=== PATIENT | male | born 1980 | race Caucasian/White ===

== ENCOUNTER 2018-12-05 07:30 | Emergency (ER) | payer MEDICAID ==
[2018-12-05 08:12] VITALS: BP 151/80
[2018-12-05] MEDS ORDERED: Ketorolac 60 MG/2 ML SDV IVPUSH ONE (08:35)
[2018-12-05] MEDS ORDERED: Ketorolac 60 MG/2 ML SDV ONE (08:40)
[2018-12-05] MEDS ORDERED: Diatrizoate Meglumine/Diatrizoate Sodium 37% 30 ML Bottle PO SCH (08:45)
--- NOTE | 2018-12-05 09:17 | EDM.PDOC ---
ED HPI GENERAL MEDICAL PROBLEM - General Chief Complaint: Abdominal Pain Stated Complaint: ABD PAIN Time Seen by Provider: 12/05/18 08:23 Source of Information: Reports: Patient, EMS History Limitations: Reports: No Limitations - History of Present Illness INITIAL COMMENTS - FREE TEXT/NARRATIVE: Pt was brought in by EMS with c/o abdominal pain. Pt is alert and oriented in the emergency room. He claims he has had left lower quadrant pain since last night. Pain is crampy in nature, waxing and waning type.Rates pain at 8/10. He claims since midnight he has had 5 episodes of small semiformed stools. Feels urge to use bath room, has used toilet twice in the emergency room. No fever or chills. No nausea or vomiting. No abdominal distension. He does take Vicodin for his chronic back pain, which is not helping with his abdominal pain. Onset Date: 12/04/18 Duration: Getting Worse, Intermittent Location: Reports: Abdomen Quality: Reports: Ache Severity: Moderate Improves with: Reports: None Worsens with: Reports: None Associated Symptoms: Denies: Confusion, Chest Pain, Cough, Diaphoresis, Fever/ Chills, Headaches, Nausea/Vomiting, Rash, Seizure, Shortness of Breath, Syncope , Weakness Treatments [employer]: Reports: Other (see below) Other Treatments [employer]: percocet Abdominal Pain Score (Numeric/FACES): 10 - Related Data Allergies Allergy/AdvReac Type Severity Reaction Status Date / Time No Known Allergies Allergy Verified 12/26/15 23:26 Home Meds: Home Meds Acetaminophen/oxyCODONE [Percocet 325-5 MG] 1 tab PO Q8HR 12/05/18 [History] Sildenafil Citrate [Sildenafil] 50 mg PO DAILY PRN 12/05/18 [History] Past Medical History HEENT History: Reports: Impaired Vision Musculoskeletal History: Reports: Back Pain, Chronic Psychiatric History: Reports: Depression - Past Surgical History Musculoskeletal Surgical History: Reports: Other (See Below) Social & Family History - Family History Family Medical History: Noncontributory - Tobacco Use Smoking Status *Q: Current Every Day Smoker Years of Tobacco use: 20 Packs/Tins Daily: 1 Second Hand Smoke Exposure: Yes - Caffeine Use Caffeine Use: Reports: Coffee - Recreational Drug Use Recreational Drug Use: Yes Drug Use in Last 12 Months: Yes Recreational Drug Type: Reports: Marijuana/Hashish Recreational Drug Use Frequency: Monthly ED ROS GENERAL - Review of Systems Review Of Systems: See Below Constitutional: Denies: Fever, Chills, Weakness HEENT: Denies: Ear Pain, Rhinitis, Throat Pain Respiratory: Denies: Shortness of Breath, Pleuritic Chest Pain, Cough, Sputum Cardiovascular: Denies: Chest Pain, Lightheadedness Endocrine: Denies: Fatigue GI/Abdominal: Reports: Abdominal Pain, Diarrhea, Flatus. Denies: Black Stool, Constipation, Distension, Hematochezia, Melena, Nausea, Vomiting : Denies: Dysuria, Frequency Musculoskeletal: Denies: Joint Pain, Joint Swelling Skin: Denies: Bruising, Pruritis, Rash ED EXAM, GENERAL - Physical Exam Exam: See Below Exam Limited By: No Limitations General Appearance: Alert, WD/WN, Mild Distress Eye Exam: Bilateral Eye: EOMI, PERRL Ears: Normal External Exam, Normal Canal, Hearing Grossly Normal, Normal TMs Ear Exam: Bilateral Ear: Auricle Normal, Canal Normal, TM normal Nose: Normal Inspection, Normal Mucosa, No Blood Throat/Mouth: Normal Inspection, Normal Lips, Normal Teeth, Normal Gums, Normal Oropharynx, Normal Voice, No Airway Compromise Head: Atraumatic, Normocephalic Neck: Normal Inspection, Supple, Non-Tender, Full Range of Motion Respiratory/Chest: No Respiratory Distress, Lungs Clear, Normal Breath Sounds, No Accessory Muscle Use, Chest Non-Tender Cardiovascular: Normal Peripheral Pulses, Regular Rate, Rhythm, No Edema, No Gallop, No JVD, No Murmur, No Rub GI/Abdominal: Normal Bowel Sounds, Soft, No Organomegaly, No Distention, Tender (Pt is tender in theleftlower quadrant. No rebound tenderness.). No: Guarding, Rigid, Rebound Extremities: Normal Inspection, Normal Range of Motion, Non-Tender, Normal Capillary Refill, No Pedal Edema Neurological: Alert, Oriented, CN II-XII Intact, Normal Cognition, Normal Gait, Normal Reflexes, No Motor/Sensory Deficits Skin Exam: Warm, Intact Course - Vital Signs Text/Narrative:: Pt has been having frequent small stool, with left lower quadrant pain since midnight. No nausea or vomiting. His CBC shows white count of 14 K with 81% neutros. His CMP appears normal. He did receive toradol 60mg IM, which did bring his pain down to 2-3/10. Abdominal X-ray one view is negative for bowel obstruction and does show stool in the left side fo colon. Considering patient' s history did get CT abdomen and pelvis which is consistent with diverticulitis. Pt reassured that he has developed acute diverticulitis. As he is able to tolerate orally well, I have started him on cipro 500mg twice daily , Flagyl 500mg Twice daily for 1 wk. Also given script for toradol 10mg 3 times daily with food to help with pain. Soft diet, encourage plenty of fluids. Symptoms should gradually improve. Avoid constipation in future to prevent recurrent diverticulitis. Education given. Pt advised to followup with his primary care provider next week. Last Recorded V/S: Last Vital Signs Temp 97 F 12/05/18 08:10 Pulse 72 12/05/18 08:10 Resp 16 12/05/18 08:10 BP 151/80 H 12/05/18 08:10 Pulse Ox 100 12/05/18 08:10 - Orders/Labs/Meds Orders: Active Orders 24 hr Category Date Time Status Abdomen 1V Upright [CR] Stat Exams 12/05/18 08:08 Taken Abdomen Pelvis wo Cont [CT] Stat Exams 12/05/18 08:30 Taken Diatrizoate Billie/Diatrizoate Na [Gastrografin 37%] Med 12/05/18 08:45 Active 30 ml PO . DIRECTED Medication Orders Diatrizoate Meglum/Diatrizoate Sod (Gastrografin 37%) 30 ml PO . DIRECTED MIGNON Last Admin: 12/05/18 08:30 Dose: 30 ml Labs: Laboratory Tests 12/05/18 12/05/18 Range/Units 08:00 08:00 WBC 14.3 H D (4.0-11.0) K/uL RBC 4.32 L (4.50-6.50) M/uL Hgb 13.4 (13.0-18.0) g/dL Hct 39.8 L (40.0-54.0) % MCV 92 (76-96) fL MCH 31.0 (27.0-32.0) pg MCHC 33.7 (31.0-35.0) g/dL RDW 12.7 (11.0-16.0) % Plt Count 311 (150-400) K/uL MPV 9.0 (6.0-10.0) fL Neut % (Auto) 81.5 H (45.0-70.0) % Lymph % (Auto) 10.3 L (20.0-40.0) % [place] % (Auto) 6.7 (3.0-10.0) % Eos % (Auto) 1.1 (1.0-5.0) % Baso % (Auto) 0.4 (0.0-0.5) % Neut # (Auto) 11.63 H (2.00-7.50) K/uL Lymph # (Auto) 1.47 L (1.50-4.00) K/uL [place] # (Auto) 0.95 H (0.20-0.80) K/uL Eos # (Auto) 0.16 (0.04-0.40) K/uL Baso # (Auto) 0.05 (0.02-0.10) K/uL Sodium 145 (136-145) mmol/L Potassium 3.7 (3.5-5.1) mmol/L Chloride 108 H (98-107) mmol/L Carbon Dioxide 25.7 (21.0-32.0) mmol/L Anion Gap 15.0 (5.0-15.0) mmol/L BUN 19 (8-26) mg/dL Creatinine 1.03 (0.70-1.30) mg/dL Est Cr Clr Drug Dosing TNP Estimated GFR (MDRD) > 60 (>60) MLS/MIN BUN/Creatinine Ratio 18.4 (6-25) Glucose 141 H D (74-100) mg/dL Calcium 8.6 (8.5-10.1) mg/dL Total Bilirubin 0.2 (0.0-1.0) mg/dL AST 17 (15-37) U/L ALT 25 (12-78) U/L Alkaline Phosphatase 49 (46-116) U/L Total Protein 6.9 (6.4-8.2) g/dL Albumin 3.7 (3.4-5.0) g/dL Globulin 3.2 (2.2-4.2) g/dL Albumin/Globulin Ratio 1.2 (0.8-2.0) Meds: Medications Generic Name Dose Route Start Last Admin Trade Name Freq PRN Reason Stop Dose Admin Diatrizoate Meglum/Diatrizoate Sod 30 ml 12/05/18 08:45 12/05/18 08:30 Gastrografin 37% PO 30 ml . DIRECTED MIGNON Administration Discontinued Medications Generic Name Dose Route Start Last Admin Trade Name Fauzia PRN Reason Stop Dose Admin Ketorolac Tromethamine Confirm 12/05/18 08:40 12/05/18 08:46 Toradol Administered 12/05/18 08:41 Not Given Dose 60 mg .ROUTE .STK-MED ONE Ketorolac Tromethamine 60 mg 12/05/18 08:35 12/05/18 08:40 Toradol IVPUSH 12/05/18 08:36 60 mg ONETIME ONE Administration Departure - Departure Time of Disposition: 10:10 Disposition: Home, Self-Care 01 Condition: Fair Clinical Impression: Diverticulitis large intestine - Discharge Information Instructions: Abdominal Pain, Adult, Diverticulitis, Ketorolac tablets, Ciprofloxacin tablets, Metronidazole tablets or capsules Referrals: PCP,Unknown [Ordering Only Provider] - Forms: ED Department Discharge, ED Return to Work/School Form Care Plan Goals: Lots of fluids. Take cipro 500mg 2 x day for 7 days. Take Flagyl 500mg 2 x day for 7 days. Take Ketorlac 10mg 3 x day as needed. No more than 3 x day. Refrain from Hydrocodone due potential for constipation. Exclude berrries, corn unpealed apples, unpealed tomatoes from diet. Can have grapes. Anything with seads, do not eat. Fill prescriptions at pharmacy. - Problem List & Annotations (1) Diverticulitis large intestine SNOMED Code(s): 0557841 Code(s): K57.32 - DVTRCLI OF LG INT W/O PERFORATION OR ABSCESS W/O BLEEDING Status: Acute Current Visit: Yes - Problem List Review Problem List Initiated/Reviewed/Updated: Yes - My Orders Last 24 Hours: My Active Orders 12/05/18 08:08 Abdomen 1V Upright [CR] Stat 12/05/18 08:30 Abdomen Pelvis wo Cont [CT] Stat 12/05/18 08:45 Diatrizoate Billie/Diatrizoate Na [Gastrografin 37%] 30 ml PO . DIRECTED - Assessment/Plan Last 24 Hours: My Active Orders 12/05/18 08:08 Abdomen 1V Upright [CR] Stat 12/05/18 08:30 Abdomen Pelvis wo Cont [CT] Stat 12/05/18 08:45 Diatrizoate Billie/Diatrizoate Na [Gastrografin 37%] 30 ml PO . DIRECTED Assessment:: Colonic diverticulitis Plan: Pt has been having frequent small stool, with left lower quadrant pain since midnight. No nausea or vomiting. His CBC shows white count of 14 K with 81% neutros. His CMP appears normal. He did receive toradol 60mg IM, which did bring his pain down to 2-3/10. Abdominal X-ray one view is negative for bowel obstruction and does show stool in the left side fo colon. Considering patient' s history did get CT abdomen and pelvis which is consistent with diverticulitis. Pt reassured that he has developed acute diverticulitis. As he is able to tolerate orally well, I have started him on cipro 500mg twice daily , Flagyl 500mg Twice daily for 1 wk. Also given script for toradol 10mg 3 times daily with food to help with pain. Soft diet, encourage plenty of fluids. Symptoms should gradually improve. Avoid constipation in future to prevent recurrent diverticulitis. Education given. Pt advised to followup with his primary care provider next week.
--- NOTE | 2018-12-05 10:51 | CR ---
DATE OF SERVICE: 12/05/2018 Clinical Data: Abdominal Pain. Upright Abdomen: No free air. There is gas throughout the small colon. No dilated loops of bowel. No evidence of obstruction or ileus. No other significant findings. MTDD
--- NOTE | 2018-12-05 11:04 | CT ---
DATE OF SERVICE: 12/05/18 Clinical Data: Abdominal Pain Abdomen and pelvic CT: Multislice acquisition through the abdomen and pelvis without IV, but oral contrast was performed. No priors. Motion artifact degrades image quality. The lung bases are clear. There are minimal atelectatic changes in the dependent portion of both lower lungs. The lung bases are otherwise clear. The heart size is normal. There is a small amount of gas noted in the distal esophagus most likely related to GE reflux. The unenhanced liver appears normal. No focal hepatic lesions. The gallbladder is partially contracted but otherwise appears normal. No calcified gallstones. The spleen appears normal. The pancreas appears normal. The right and left adrenals appear normal. The right and left kidneys appear normal. No nephrocalcinosis or nephrolithiasis. No hydronephrosis or hydroureter. There is a small amount of fluid within the bladder. It appears grossly normal. No evidence of appendicitis. There is a moderate amount of gas and stool present throughout the colon. No free air. No free fluid. No dilated loops of bowel. No adenopathy. No aortic aneurysm. Impression: No acute abnormalities. MTDD
== END 2018-12-05 10:30 | disposition home or self-care (01) ==
LOC: LB.ED 07:30
DX: K57.32 Diverticulitis of large intestine without perforation or abscess without bleeding (principal); F17.210 Nicotine dependence, cigarettes, uncomplicated; Z79.899 Other long term (current) drug therapy
CPT/HCPCS: 36415; 74018; 74176; 80053; 85025; 96374; 99284-25; J1885; Q9963

== ENCOUNTER 2019-11-03 09:11 | Emergency (ER) | payer MEDICAID ==
[2019-11-03 09:26] VITALS: BP 140/85; PULSE 81
[2019-11-03] MEDS: Ketorolac 60 MG/2 ML SDV ONE (10:39)
[2019-11-03] MEDS: Ketorolac 60 MG/2 ML SDV IM ONE (10:39)
--- NOTE | 2019-11-03 14:07 | ER ---
REASON FOR EMERGENCY ROOM VISIT: Abdominal pain. HISTORY: This 39-year-old, ernesto, awoke this morning with pain in his right upper quadrant. It was not intermittent, but rather steady in nature. He points to the right upper quadrant and right flank area when describing it is location. He has not had any fever or urinary symptoms. He denies any nausea or vomiting or diarrhea. His last bowel movement was this morning. He does have a history of diverticulitis dating back 1 year ago, which was treated with oral antibiotics as an outpatient. He denies any back pain or diaphoresis. He has never had anything like this in the past. PAST MEDICAL HISTORY: 1. Diverticulitis as noted above. 2. Chronic back pain. 3. Depression. MEDICATIONS: Include sildenafil p.r.n. ALLERGIES: ACETAMINOPHEN. REVIEW OF SYSTEMS: The pertinent positives and negatives as listed in the HPI. PHYSICAL EXAMINATION: GENERAL: Reveals a pleasant man in no acute distress. VITAL SIGNS: He is afebrile. Blood pressure is 140/85, pulse of 81, respirations 18, O2 sats 100%. HEENT: No scleral icterus is noted. No conjunctivitis. Oral mucosa is normal. NECK: Supple. No adenopathy. CHEST: Clear to auscultation with good air exchange bilaterally and no wheezes, rhonchi, or rales. CARDIAC: Regular rate without murmur or rub. ABDOMEN: Scaphoid. Bowel sounds are present. He has some mild, poorly localized tenderness in the right upper quadrant and to a lesser degree of the right flank area. There is no rebound or guarding. There is no percussion to tenderness. No palpable masses. No organomegaly. EXTREMITIES: Normal pulses. No edema. LABORATORY DATA: His CBC is normal with a white count of 7.8 and hemoglobin of 15.2. His CMP is within normal limits including liver enzymes. His amylase is normal. His lipase is normal. UA is pending at the time of this dictation further. FURTHER EMERGENCY ROOM COURSE: He was given 60 mg of Toradol IM while we were awaiting a CT scan of his abdomen and pelvis. This was done without contrast and no abnormalities were found. Specifically, there is no findings with regard to his biliary tract including gallbladder as well as his no evidence of nephrolithiasis or ureterolithiasis. His appendix was visualized and appeared normal. IMPRESSION: Abdominal pain, short duration, uncertain etiology at this time. PLAN: I recommended that he simply see all things go throughout the day. This may pass and we may never know what it is. If it persists into tomorrow or that any time worsens, he should be evaluated again. He should follow up with his provider Dr. Carvajal. He understands and agrees and all questions were answered. CAYLA /[id number]
--- NOTE | 2019-11-03 19:36 | CR ---
DATE OF SERVICE: 11/03/19 CLINICAL DATA: RUQ pain SUPINE AND UPRIGHT ABDOMEN: No priors. There are scattered air-fluid levels within the colon and small bowel. They do not appear distended. Enterocolitis should be considered. Followup imaging is recommended if clinically indicated. No free air. No other significant findings. [facility]
--- NOTE | 2019-11-03 19:42 | CT ---
DATE OF SERVICE: 11/03/19 CLINICAL DATA: RUQ and flank pain/tenderness UNENHANCED ABDOMEN AND PELVIC CT: Multislice axial acquisition was performed without IV or oral contrast. Comparison is made to a prior exam dated 12/05/18. The lung bases are clear. The unenhanced liver appears normal. The gallbladder appears normal. The spleen appears normal. The pancreas appears normal. The right and left adrenals appear normal. The right and left kidneys appear normal. No nephrocalcinosis or nephrolithiasis. No hydronephrosis or hydroureter. The bladder is partially fluid-filled. It appears normal. No evidence of appendicitis. There are scattered air-fluid levels noted within the colon and small bowel. A couple of the loops of small bowel are mildly distended. Enterocolitis should be considered. I cannot completely exclude a developing obstruction or ileus and followup imaging is recommended if clinically indicated. No free air. There is a small amount of free fluid noted within the pelvis. No adenopathy. No aortic aneurysm. No other significant findings. [id number] [facility]
== END 2019-11-03 11:29 | disposition home or self-care (01) ==
LOC: LB.ED 09:11
DX: R10.11 Right upper quadrant pain (principal); Z88.6 Allergy status to analgesic agent
CPT/HCPCS: 36415; 74019; 74176; 80053; 82150; 83690; 85025; 96372; 99284-25; J1885

== ENCOUNTER 2019-11-06 15:57 | Emergency (ER) | payer MEDICAID ==
--- NOTE | 2019-11-06 17:17 | EDM.PDOC ---
ED HPI GENERAL MEDICAL PROBLEM - General Chief Complaint: Gastrointestinal Problem Stated Complaint: BLOOD IN BATHROOM STOOL Time Seen by Provider: 11/06/19 17:25 Source of Information: Reports: Patient, RN History Limitations: Reports: No Limitations - History of Present Illness INITIAL COMMENTS - FREE TEXT/NARRATIVE: 39 yo male presents with concerns of rectal bleeding. Started today. States he had seen the provider in [place] for this and was instructed to monitor. While in ER he did try to have a BM and there was blood in the toilet water and nurse did visualize this. There was no BM in the toilet. - Related Data Allergies Allergy/AdvReac Type Severity Reaction Status Date / Time acetaminophen AdvReac Stomach Verified 11/03/19 09:57 Upset Home Meds: Home Meds Sildenafil Citrate 50 mg PO DAILY PRN 12/05/18 [History] Polyethylene Glycol 3350 [MiraLAX] 510 gm PO DAILY PRN #1 cont 11/06/19 [Rx] Psyllium Seed (With Sugar) [Metamucil Powder] 575 gm PO DAILY #1 powder [Rx] Past Medical History HEENT History: Reports: Impaired Vision Respiratory History: Reports: Sleep Apnea Other Respiratory History: uninvestigated "i have been told I stop breathing in my sleep sometimes" Gastrointestinal History: Reports: Other (See Below) Other Gastrointestinal History: hx "left side intestinal infection" Musculoskeletal History: Reports: Back Pain, Chronic Psychiatric History: Reports: Depression, Suicide Attempt, Suicidal Ideation - Infectious Disease History Infectious Disease History: Reports: Influenza - Past Surgical History Musculoskeletal Surgical History: Reports: Other (See Below) Social & Family History - Family History Family Medical History: Noncontributory - Caffeine Use Caffeine Use: Reports: Coffee ED ROS GENERAL - Review of Systems Review Of Systems: See Below Constitutional: Reports: Weakness Respiratory: Reports: No Symptoms Cardiovascular: Reports: No Symptoms GI/Abdominal: Reports: Bloody Stool, Hematochezia. Denies: Abdominal Pain, Constipation, Diarrhea, Nausea : Denies: Discharge, Dysuria Musculoskeletal: Reports: Other (chronic pain) Neurological: Reports: Dizziness ED EXAM, GI/ABD - Physical Exam Exam: See Below Exam Limited By: No Limitations General Appearance: Alert, No Apparent Distress Ears: Hearing Grossly Normal Nose: Normal Inspection, Normal Mucosa Throat/Mouth: Normal Voice, No Airway Compromise Head: Atraumatic, Normocephalic Neck: Supple, Non-Tender Respiratory/Chest: No Respiratory Distress, Lungs Clear, Normal Breath Sounds Cardiovascular: Normal Peripheral Pulses, Regular Rate, Rhythm GI/Abdominal Exam: Normal Bowel Sounds, Soft, Non-Tender Rectal (Males) Exam: Bloody Stool. No: Black Stool Extremities: Normal Range of Motion, Non-Tender, No Pedal Edema Neurological: Alert, Oriented, Normal Cognition Skin Exam: Warm, Dry, Normal Color Course - Vital Signs Last Recorded V/S: Last Vital Signs Temp 97.7 F 11/06/19 16:50 Pulse 76 11/06/19 16:55 Resp 16 11/06/19 16:55 BP 132/84 11/06/19 16:55 Pulse Ox 100 11/06/19 16:55 Departure - Departure Time of Disposition: 17:40 Disposition: Home, Self-Care 01 Clinical Impression: Hemorrhoid - Discharge Information Prescriptions: Polyethylene Glycol 3350 [MiraLAX] 510 gm PO DAILY PRN #1 cont PRN Reason: Constipation Psyllium Seed (With Sugar) [Metamucil Powder] 575 gm PO DAILY #1 powder Instructions: Rectal Bleeding, [id number] Referrals: PCP,None [Primary Care Provider] - Forms: ED Department Discharge Care Plan Goals: Take metamucil as recommended by provider. Make sure to drink a full glass of water when taking the metamucil may take miralax if metamucil not working, if bleeding continues call to make an appointment for a colonoscopy. Return with any questions or concerns. Sepsis Event Note - Focused Exam Vital Signs: Vital Signs Temp Pulse Resp BP Pulse Ox 11/06/19 16:55 76 16 132/84 100 11/06/19 16:50 97.7 F 76 16 132/84 100 Date Exam was Performed: 11/06/19 Time Exam was Performed: 17:51 - Assessment/Plan Plan: Recommend to use Metamucil daily and Miralax daily as needed for regular, soft BM. Recommend increase of fluids. RTC if symptoms worsen.
== END 2019-11-06 17:41 | disposition home or self-care (01) ==
LOC: LB.ED 15:57
CPT/HCPCS: 99283

== ENCOUNTER 2020-04-12 17:25 | Emergency (ER) | payer MEDICAID ==
[2020-04-12 17:39] VITALS: BP 132/84; PULSE 80
[2020-04-12] MEDS ORDERED: tiZANidine 2 MG Cap PO STA (17:53)
[2020-04-12] MEDS ORDERED: Ketorolac 60 MG/2 ML SDV IM ONE (17:55)
--- NOTE | 2020-04-12 18:05 | EDM.PDOC ---
ED HPI GENERAL MEDICAL PROBLEM - General Chief Complaint: General Stated Complaint: Hip pain Time Seen by Provider: 04/12/20 17:40 Source of Information: Reports: Patient History Limitations: Reports: No Limitations - History of Present Illness INITIAL COMMENTS - FREE TEXT/NARRATIVE: pt states longstanding history of back pain and right sided sciatica. has been seen and treated by [facility] and has primary care in [place]. pt states his pain was exacerbated by lifting and working at his job yesterday and when he woke up this morning, he "was real stiff and could barely get out of bed without a back spasm" pt states right lower back spasm with back pain and right side sciatica exacerbation. pt denies IV drug use, high risk sex behaviors, fever, chills. Right Hip Pain Score (Numeric/FACES): 8 - Related Data Allergies Allergy/AdvReac Type Severity Reaction Status Date / Time acetaminophen AdvReac Stomach Verified 11/03/19 09:57 Upset Home Meds: Home Meds Sildenafil Citrate 50 mg PO DAILY PRN 12/05/18 [History] Psyllium Seed (With Sugar) [Metamucil Powder] 575 gm PO DAILY #1 powder 11/06/19 [Rx] polyethylene glycoL 3350 [MiraLAX] 510 gm PO DAILY PRN #1 cont 11/06/19 [Rx] Past Medical History HEENT History: Reports: Impaired Vision Respiratory History: Reports: Sleep Apnea Other Respiratory History: uninvestigated "i have been told I stop breathing in my sleep sometimes" Gastrointestinal History: Reports: Other (See Below) Other Gastrointestinal History: hx "left side intestinal infection" Musculoskeletal History: Reports: Back Pain, Chronic Psychiatric History: Reports: Depression, Suicide Attempt, Suicidal Ideation Do You Give Correction Boluses or Sliding Scale: No - Infectious Disease History Infectious Disease History: Reports: Influenza - Past Surgical History Musculoskeletal Surgical History: Reports: Other (See Below) Social & Family History - Family History Family Medical History: Noncontributory - Tobacco Use Years of Tobacco use: 25 Packs/Tins Daily: 1 - Caffeine Use Caffeine Use: Reports: Coffee, Soda - Recreational Drug Use Recreational Drug Use: Yes Drug Use in Last 12 Months: Yes Recreational Drug Type: Reports: Marijuana/Hashish ED ROS GENERAL - Review of Systems Review Of Systems: Comprehensive ROS is negative, except as noted in HPI. ED EXAM, GENERAL - Physical Exam Exam: See Below Exam Limited By: No Limitations General Appearance: Alert, WD/WN, No Apparent Distress Eye Exam: Bilateral Eye: EOMI, PERRL Throat/Mouth: Normal Inspection, Normal Lips, Normal Teeth, Normal Oropharynx, Normal Voice Head: Atraumatic, Normocephalic Respiratory/Chest: No Respiratory Distress, Lungs Clear, Normal Breath Sounds, No Accessory Muscle Use, Chest Non-Tender Cardiovascular: Normal Peripheral Pulses, Regular Rate, Rhythm, No Edema, No Gallop, No Murmur, No Rub Peripheral Pulses: 2+: Dorsalis Pedis (L), Dorsalis Pedis (R) Back Exam: Muscle Spasm, Paraspinal Tenderness, Other (no vertebral tenderness.) Extremities: Normal Inspection, Normal Range of Motion, Non-Tender Neurological: Alert, Oriented, CN II-XII Intact, Normal Cognition Psychiatric: Normal Affect, Normal Mood Skin Exam: Warm, Dry, Intact Course - Vital Signs Last Recorded V/S: Last Vital Signs Temp 98 F 04/12/20 17:37 Pulse 80 04/12/20 17:37 Resp 18 04/12/20 17:37 BP 132/84 04/12/20 17:37 Pulse Ox 98 04/12/20 17:37 - Orders/Labs/Meds Meds: Medications Discontinued Medications Generic Name Dose Route Start Last Admin Trade Name Fauzia PRN Reason Stop Dose Admin Diazepam 5 mg 04/12/20 18:13 04/12/20 18:17 Valium IM 04/12/20 18:14 5 mg ONETIME ONE Administration Ketorolac Tromethamine 15 mg 04/12/20 17:55 04/12/20 18:03 Toradol IM 04/12/20 17:56 15 mg ONETIME ONE Administration Tizanidine HCl 2 mg 04/12/20 17:53 Tizanidine PO 04/12/20 17:54 NOW STA - Re-Assessments/Exams Free Text/Narrative Re-Assessment/Exam: 04/12/20 18:45 pt states his back pain is currently at baseline. Departure - Departure Time of Disposition: 18:45 Disposition: Home, Self-Care 01 Condition: Fair Clinical Impression: Back muscle spasm Low back pain with sciatica Qualifiers: Chronicity: chronic Back pain laterality: right Sciatica laterality: sciatica of right side Qualified Code(s): M54.41 - Lumbago with sciatica, right side - Discharge Information *PRESCRIPTION DRUG MONITORING PROGRAM REVIEWED*: Yes *COPY OF PRESCRIPTION DRUG MONITORING REPORT IN PATIENT JUDITH: No Instructions: Chronic Back Pain, [id number] Referrals: PCP,None [Primary Care Provider] - Forms: ED Department Discharge Additional Instructions: Kong was seen in the ER today 12 April 2020. he may return to work on 14 April 2020. Sepsis Event Note (ED) - Evaluation Sepsis Screening Result: No Definite Risk - Focused Exam Vital Signs: Vital Signs Temp Pulse Resp BP Pulse Ox 04/12/20 17:37 98 F 80 18 132/84 98 - Problem List & Annotations (1) Low back pain with sciatica SNOMED Code(s): 636030993 Code(s): M54.40 - LUMBAGO WITH SCIATICA, UNSPECIFIED SIDE Status: Acute Current Visit: No Qualifiers: Chronicity: chronic Back pain laterality: right Sciatica laterality: sciatica of right side Qualified Code(s): M54.41 - Lumbago with sciatica, right side; G89.29 - Other chronic pain (2) Back muscle spasm SNOMED Code(s): 977225597 Code(s): M62.830 - MUSCLE SPASM OF BACK Status: Acute Current Visit: No Onset Date: ~04/12/20 - Problem List Review Problem List Initiated/Reviewed/Updated: Yes - Assessment/Plan Assessment:: assessment: lumbago of right side back with sciatica back muscle spasm plan: IM toradol and IM valium ibuprofen OR aleve OTC as discussed work note provided
== END 2020-04-12 19:01 | disposition home or self-care (01) ==
LOC: LB.ED 17:25
DX: M54.41 Lumbago with sciatica, right side (principal); M62.830 Muscle spasm of back; F17.210 Nicotine dependence, cigarettes, uncomplicated; Z88.6 Allergy status to analgesic agent; Z79.899 Other long term (current) drug therapy
CPT/HCPCS: 96372; 99283; J1885; J3360

== ENCOUNTER 2020-07-01 14:09 | Emergency (ER) | payer MEDICAID ==
[2020-07-01 14:52] VITALS: BP 132/75; PULSE 103
[2020-07-01] MEDS ORDERED: Acetaminophen 325 MG Tab PO ONE (15:12)
[2020-07-01] MEDS ORDERED: Ketorolac 30 MG/ML SDV IM ONE (15:12)
[2020-07-01] MEDS ORDERED: Methocarbamol 500 MG Tab PO ONE (15:14)
[2020-07-01] MEDS ORDERED: Ketorolac 30 MG/ML SDV ONE (15:18)
[2020-07-01] MEDS ORDERED: Acetaminophen 325 MG Tab ONE (15:19)
--- NOTE | 2020-07-01 15:22 | EDM.PDOC ---
ED HPI GENERAL MEDICAL PROBLEM - General Chief Complaint: General Stated Complaint: HIP PAIN Time Seen by Provider: 07/01/20 14:50 Source of Information: Reports: Patient History Limitations: Reports: No Limitations - History of Present Illness INITIAL COMMENTS - FREE TEXT/NARRATIVE: Chronic right hip pain, increased over the past few weeks, worse today. Denies any new injury, we discussed Xrays/CT and patient does not want any at this time. He follows with a pain clinic in [place] and will make an appointment for next week for follow up. Denies any incontinence of bowel and/or bladder, radiation into legs, groin. He is able to bear weight and full ROM albeit with pain. Quality: Reports: Sharp Improves with: Reports: Rest Worsens with: Reports: Movement Associated Symptoms: Reports: No Other Symptoms Treatments RELATIONS LIAISON: Reports: Acetaminophen Right Hip Pain Score (Numeric/FACES): 8 - Related Data Allergies Allergy/AdvReac Type Severity Reaction Status Date / Time acetaminophen AdvReac Stomach Verified 07/01/20 14:45 Upset Home Meds: Home Meds Sildenafil Citrate 50 mg PO DAILY PRN 12/05/18 [History] Psyllium Seed (With Sugar) [Metamucil Powder] 575 gm PO DAILY #1 powder 11/06/19 [Rx] polyethylene glycoL 3350 [MiraLAX] 510 gm PO DAILY PRN #1 cont 11/06/19 [Rx] Past Medical History HEENT History: Reports: Impaired Vision Respiratory History: Reports: Sleep Apnea Other Respiratory History: uninvestigated "i have been told I stop breathing in my sleep sometimes" Gastrointestinal History: Reports: Other (See Below) Other Gastrointestinal History: hx "left side intestinal infection" Musculoskeletal History: Reports: Back Pain, Chronic Psychiatric History: Reports: Depression, Suicide Attempt, Suicidal Ideation - Infectious Disease History Infectious Disease History: Reports: Influenza - Past Surgical History Musculoskeletal Surgical History: Reports: Other (See Below) Social & Family History - Family History Family Medical History: Noncontributory - Tobacco Use Smoking Status *Q: Current Every Day Smoker Years of Tobacco use: 20 Packs/Tins Daily: 1 - Caffeine Use Caffeine Use: Reports: Coffee - Recreational Drug Use Recreational Drug Use: No ED ROS GENERAL - Review of Systems Review Of Systems: See Below Constitutional: Reports: No Symptoms HEENT: Reports: No Symptoms Respiratory: Reports: No Symptoms Cardiovascular: Reports: No Symptoms Endocrine: Reports: No Symptoms GI/Abdominal: Reports: No Symptoms : Reports: No Symptoms Musculoskeletal: Reports: Joint Pain (chronic right hip and lower back pain) Skin: Reports: No Symptoms Neurological: Reports: No Symptoms Psychiatric: Reports: No Symptoms Hematologic/Lymphatic: Reports: No Symptoms ED EXAM, GENERAL - Physical Exam Exam: See Below Exam Limited By: No Limitations General Appearance: Alert, Mild Distress Ears: Normal External Exam Head: Atraumatic Neck: Full Range of Motion Respiratory/Chest: No Respiratory Distress Cardiovascular: No JVD, Tachycardia (Male) Exam: Deferred Rectal (Males) Exam: Deferred Back Exam: Full Range of Motion, Other (right hip pain/lower back chronic pain). No: CVA Tenderness (R), Decreased Range of Motion Extremities: Normal Inspection, Normal Range of Motion, Other (able to ROM but with pain) Neurological: Alert, Oriented, No Motor/Sensory Deficits Psychiatric: Normal Affect, Normal Mood Skin Exam: Warm, Dry, Intact Course - Vital Signs Last Recorded V/S: Last Vital Signs Temp 98.0 F 07/01/20 15:05 Pulse 103 H 07/01/20 15:05 Resp 18 07/01/20 15:05 BP 132/75 07/01/20 15:05 Pulse Ox 99 07/01/20 15:05 - Orders/Labs/Meds Meds: Medications Discontinued Medications Generic Name Dose Route Start Last Admin Trade Name Fauzia PRN Reason Stop Dose Admin Acetaminophen 650 mg 07/01/20 15:12 07/01/20 15:15 Tylenol PO 07/01/20 15:13 650 mg NOW ONE Administration Acetaminophen Confirm 07/01/20 15:19 07/01/20 15:15 Tylenol Administered 07/01/20 15:20 Not Given Dose 650 mg .ROUTE .STK-MED ONE Ketorolac Tromethamine 15 mg 07/01/20 15:12 07/01/20 15:15 Toradol IM 07/01/20 15:13 15 mg ONETIME ONE Administration Ketorolac Tromethamine Confirm 07/01/20 15:18 07/01/20 15:15 Toradol Administered 07/01/20 15:19 Not Given Dose 30 mg .ROUTE .STK-MED ONE Methocarbamol 500 mg 07/01/20 15:14 09/10/20 15:24 Robaxin PO 07/01/20 15:15 500 mg ONETIME ONE Administration Departure - Departure Time of Disposition: 15:30 Disposition: Home, Self-Care 01 Clinical Impression: Chronic right hip pain - Discharge Information *PRESCRIPTION DRUG MONITORING PROGRAM REVIEWED*: Not Applicable *COPY OF PRESCRIPTION DRUG MONITORING REPORT IN PATIENT JUDITH: Not Applicable Instructions: Hip Pain Referrals: PCP,None [Primary Care Provider] - Forms: ED Department Discharge, ED Return to Work/School Form Additional Instructions: Follow up with your pain clinic next week as discussed. Try tylenol 650mg and 600mg ibuprofen every 6 hours at home for pain. Take with food. Rest but remain active, you may return to work Sunday. Return to ED for any increased or new concerning symptoms./ Sepsis Event Note (ED) - Evaluation Sepsis Screening Result: No Definite Risk - Focused Exam Vital Signs: Vital Signs Temp Pulse Resp BP Pulse Ox 07/01/20 15:05 98.0 F 103 H 18 132/75 99 07/01/20 14:40 98.0 F 103 H 18 132/75 99 - Problem List Review Problem List Initiated/Reviewed/Updated: Yes - Assessment/Plan Plan: patient medicated for pain in the ED, he will follow up with his pain clinic next week for further workup/testing. We decided not to do any imaging as the patient reports that this pain is the same pain and denied trauma/injury. We discussed taking Tylenol and ibuprofen for pain. Patient verbalized understanding. Differential diagnosis may include: fracture, pyelonephritis, kidney stone. Patient denies any urinary symptoms.
== END 2020-07-01 15:30 | disposition home or self-care (01) ==
LOC: LB.ED 14:09
DX: G89.29 Other chronic pain (principal); M25.551 Pain in right hip; Z88.6 Allergy status to analgesic agent; F17.210 Nicotine dependence, cigarettes, uncomplicated
CPT/HCPCS: 96372; 99283; A9270; J1885